=== PATIENT | female | born 1945 | race Two or more races ===

== ENCOUNTER 2022-07-18 03:50 | Inpatient (IN) | payer OTHER ==
[2022-07-18] VITALS (28 sets, daily range): BP systolic 86–185; BP diastolic 46–155
[~2022-07-18] VITALS: Ht 162.6 cm; Wt 62.7 kg
[2022-07-18 04:19] LABS: Basophils # (auto) 0 10 ^3/uL (0-0.2); Mean Corpuscular Volume 85.3 fL (80.0-100.0); Monocytes # (auto) 0.2 10 ^3/uL (0-1.3); Neutrophils # (auto) 9.6 10 ^3/uL (1.6-8.6); White Blood Cell 10.8 10^3/uL (4.4-10.8)
[2022-07-18 04:21] LABS: Basophils % (auto) 0.1 % (0.0-2.0); Eosinophils # (auto) 0.1 10 ^3/uL (0-0.8); Eosinophils % (auto) 0.5 % (0.0-7.0); Hematocrit 17.9 % (36.0-46.0); Lymphocytes % (auto) 9.1 % (10.0-50.0); Mean Corpuscular Hemoglobin 25.7 pg (28.0-32.0); Mean Corpuscular Hgb Conc. 30.1 g/dL (32.0-36.0); Monocytes % (auto) 1.8 % (0.0-12.0); Neutrophils % (auto) 88.5 % (37.0-80.0); Nucleated Red Blood Cells % 2.2 %; Red Cell Distribution Width 14.7 % (11.8-14.3)
[2022-07-18 04:24] LABS: Hemoglobin 5.4 g/dL (12.2-16.2)
[2022-07-18 04:38] LABS: Albumin 1.1 g/dL (3.4-5.0); BUN/Creatinine Ratio 10.2; Calcium 7.4 mg/dL (8.5-10.1); Potassium 5.2 mmol/L (3.5-5.1)
[2022-07-18 04:40] LABS: Bilirubin, Total 0.7 mg/dL (0.2-1.0); Lactic Acid w/Reflex 12.6 mmol/L (0.4-2.0); Total Protein 4.3 g/dL (6.4-8.2)
[2022-07-18] MEDS ORDERED: AZITHROMYCIN 500MG/ 250ML 250 ML IV ONE (04:45)
[2022-07-18] MEDS ORDERED: cefTRIAXone 1GM/50ML D5W 50 ML IV ONE (04:45)
[2022-07-18] MEDS ORDERED: LORazepam 0.5 MG TAB PO PRN (06:00)
[2022-07-18] MEDS ORDERED: HYDROmorphone HCL 2 MG/ML VL/or syr IV PRN (06:00)
[2022-07-18] MEDS ORDERED: DOCUSATE SOD 100 MG CAP PO PRN (06:00)
[2022-07-18] MEDS ORDERED: TEMAZEPAM 15 MG CAP PO PRN (06:00)
[2022-07-18] MEDS ORDERED: DEXTROSE (50%) 50ML SYRG IV PRN (06:00)
[2022-07-18] MEDS ORDERED: MAALOX PLUS or MAALOX 30 ML PO PRN (06:00)
[2022-07-18] MEDS ORDERED: ONDANSETRON HCL 4 MG/2 ML VIAL IV PRN (06:00)
[2022-07-18] MEDS ORDERED: SODIUM CHLORIDE 0.9% 1,000 ML IV SCH (06:00)
[2022-07-18] MEDS ORDERED: ACETAMINOPHEN 325 MG TAB PO PRN (06:00)
[2022-07-18] MEDS ORDERED: HYDROcodone-ACET 5/325MG TAB PO PRN (06:00)
[2022-07-18] MEDS ORDERED: MORPHINE SULFATE INJ 2 MG/ml SYRG IV PRN (06:00)
[2022-07-18] MEDS ORDERED: SODIUM BICARBONATE 50ML VIAL 75 ML in D5W 5% 1,000 ML IV ONE (06:15)
[2022-07-18] MEDS ORDERED: NOREPINEPHRINE 8 MG/250ML KIT 250 ML IV ONE (07:13)
[2022-07-18] MEDS ORDERED: SODIUM CHLORIDE 0.9% 1,000 ML IV ONE (07:15)
[2022-07-18] MEDS ORDERED: ALBUMIN 25% 100 ML IV ONE (07:15)
[2022-07-18] MEDS: NOREPINEPHRINE 8 MG/250ML KIT 250 ML IV SCH ×2 (07:44→23:30)
[2022-07-18] MEDS: InsuLIN REG 1unit/0.01ml Soln (100units/ml) SC SCH ×4 (08:00→20:00)
[2022-07-18] MEDS: ACCU-CHEK COMFORT CURVE STRIP VI SCH ×4 (08:00→20:00)
[2022-07-18 09:04] LABS: Hematocrit 24.2 % (36.0-46.0)
[2022-07-18] MEDS ORDERED: AZITHROMYCIN 500MG/ 250ML 250 ML IV SCH (10:00)
[2022-07-18 12:18] LABS: BUN/Creatinine Ratio 11.2; Calcium 6.9 mg/dL (8.5-10.1); Potassium 4.1 mmol/L (3.5-5.1)
[2022-07-18 19:07] LABS: Hematocrit 26.5 % (36.0-46.0); Hemoglobin 8.6 g/dL (12.2-16.2); Mean Corpuscular Hemoglobin 26.7 pg (28.0-32.0); Mean Corpuscular Hgb Conc. 32.7 g/dL (32.0-36.0); Mean Corpuscular Volume 81.8 fL (80.0-100.0); Red Blood Cells 3.23 10^6/uL (4.0-5.20); White Blood Cell 11.7 10^3/uL (4.4-10.8)
[2022-07-18 19:09] LABS: Basophils % (manual) 0 (0.0-2.0); Blast Cells 0; Eosinophils % (manual) 0 (0-7); Metamyelocytes % 0; Myelocytes % 0; Promyelocytes % 0; Reactive Lymphocytes 0
[2022-07-18 19:23] LABS: Potassium 4.1 mmol/L (3.5-5.1)
[2022-07-18 19:33] LABS: INR 1.46 (0.9-1.15); Partial Thromboplastin Time 54.1 sec (24.6-33.4)
[2022-07-18 19:35] LABS: BUN/Creatinine Ratio 12.2; Calcium 7.7 mg/dL (8.5-10.1)
[2022-07-18 19:37] LABS: Band Neutrophils % (manual) 25; Lymphocytes % (manual) 8 (10.0-50.0); Monocytes % (manual) 3 (0-12)
[2022-07-18] MEDS ORDERED: HEPARIN SODIUM (PORCINE) 5000 UNITS/ML 1ML VIAL ONE (20:21)
[2022-07-18] MEDS ORDERED: HEPARIN SODIUM (PORCINE) 5000 UNITS/ML 1ML VIAL IV ONE (20:30)
[2022-07-18] MEDS ORDERED: SODIUM CHL 0.9% 1000 ML BAG XX ONE (20:45)
[2022-07-19] VITALS (101 sets, daily range): BP systolic 67–121; BP diastolic 13–75
[2022-07-19] MEDS: ACCU-CHEK COMFORT CURVE STRIP VI SCH ×7 (00:03→23:59)
[2022-07-19 03:53] LABS: Basophils # (auto) 0 10 ^3/uL (0-0.2); Basophils % (auto) 0.1 % (0.0-2.0); Eosinophils # (auto) 0 10 ^3/uL (0-0.8); Hemoglobin 7.4 g/dL (12.2-16.2); Lymphocytes # (auto) 0.5 10 ^3/uL (0.4-5.4); Red Blood Cells 2.69 10^6/uL (4.0-5.20)
[2022-07-19 03:55] LABS: Eosinophils % (auto) 0.1 % (0.0-7.0); Hematocrit 21.5 % (36.0-46.0); Lymphocytes % (auto) 4.2 % (10.0-50.0); Mean Corpuscular Hemoglobin 27.6 pg (28.0-32.0); Mean Corpuscular Hgb Conc. 34.4 g/dL (32.0-36.0); Mean Corpuscular Volume 80.1 fL (80.0-100.0); Monocytes # (auto) 0.4 10 ^3/uL (0-1.3); Monocytes % (auto) 3.3 % (0.0-12.0); Neutrophils # (auto) 10.5 10 ^3/uL (1.6-8.6); Neutrophils % (auto) 92.3 % (37.0-80.0); Nucleated Red Blood Cells % 0.9 %; White Blood Cell 11.4 10^3/uL (4.4-10.8)
[2022-07-19] MEDS: InsuLIN REG 1unit/0.01ml Soln (100units/ml) SC SCH ×6 (04:00→20:00)
[2022-07-19 04:02] LABS: Albumin 1.3 g/dL (3.4-5.0); BUN/Creatinine Ratio 13.4; Calcium 7.5 mg/dL (8.5-10.1); Potassium 4.3 mmol/L (3.5-5.1)
[2022-07-19] MEDS: cefTRIAXone 1GM/50ML D5W 50 ML IV SCH (10:44)
[2022-07-19] MEDS: AZITHROMYCIN 500MG/ 250ML 250 ML IV SCH (10:45)
[2022-07-19] MEDS: NOREPINEPHRINE 8 MG/250ML KIT 250 ML IV SCH ×2 (12:14→20:00)
[2022-07-20] VITALS (98 sets, daily range): BP systolic 80–119; BP diastolic 49–73
[2022-07-20 01:56] LABS: Hepatitis A Ab IgM Negative
[2022-07-20 01:57] LABS: Hepatitis C Antibody Negative (Negative)
[2022-07-20 01:58] LABS: Hepatitis B Core IgM Negative
[2022-07-20] MEDS: ACCU-CHEK COMFORT CURVE STRIP VI SCH ×5 (04:00→19:57)
[2022-07-20] MEDS: InsuLIN REG 1unit/0.01ml Soln (100units/ml) SC SCH ×6 (04:00→19:58)
[2022-07-20 04:03] LABS: Basophils # (auto) 0 10 ^3/uL (0-0.2); Eosinophils # (auto) 0 10 ^3/uL (0-0.8); Lymphocytes % (auto) 6.2 % (10.0-50.0); Monocytes # (auto) 0.5 10 ^3/uL (0-1.3); Neutrophils # (auto) 14.7 10 ^3/uL (1.6-8.6); Neutrophils % (auto) 90.7 % (37.0-80.0); Nucleated Red Blood Cells % 0.3 %; Red Cell Distribution Width 15.6 % (11.8-14.3); White Blood Cell 16.2 10^3/uL (4.4-10.8)
[2022-07-20 04:08] LABS: Basophils % (auto) 0.1 % (0.0-2.0); Hematocrit 20.7 % (36.0-46.0); Mean Corpuscular Hemoglobin 28.1 pg (28.0-32.0); Mean Corpuscular Hgb Conc. 33.5 g/dL (32.0-36.0); Mean Corpuscular Volume 83.9 fL (80.0-100.0); Red Blood Cells 2.47 10^6/uL (4.0-5.20)
[2022-07-20 04:21] LABS: Albumin 1.2 g/dL (3.4-5.0); BUN/Creatinine Ratio 13.4; Potassium 4.2 mmol/L (3.5-5.1)
[2022-07-20 04:24] LABS: Total Protein 3.9 g/dL (6.4-8.2)
[2022-07-20 04:36] LABS: Hemoglobin 6.9 g/dL (12.2-16.2)
[2022-07-20] MEDS: cefTRIAXone 1GM/50ML D5W 50 ML IV SCH (08:05)
[2022-07-20] MEDS: AZITHROMYCIN 500MG/ 250ML 250 ML IV SCH (08:37)
[2022-07-20 09:22] LABS: Basophils # (auto) 0 10 ^3/uL (0-0.2); Eosinophils # (auto) 0 10 ^3/uL (0-0.8); Hemoglobin 8.1 g/dL (12.2-16.2); Red Cell Distribution Width 15.7 % (11.8-14.3)
[2022-07-20 09:23] LABS: Lymphocytes # (auto) 1.1 10 ^3/uL (0.4-5.4); Lymphocytes % (auto) 6.6 % (10.0-50.0); Mean Corpuscular Hgb Conc. 33.6 g/dL (32.0-36.0); Mean Corpuscular Volume 83.1 fL (80.0-100.0); Monocytes # (auto) 0.5 10 ^3/uL (0-1.3); Monocytes % (auto) 2.6 % (0.0-12.0); Neutrophils # (auto) 15.6 10 ^3/uL (1.6-8.6); Neutrophils % (auto) 90.8 % (37.0-80.0); Nucleated Red Blood Cells % 0.4 %; Red Blood Cells 2.89 10^6/uL (4.0-5.20); White Blood Cell 17.2 10^3/uL (4.4-10.8)
[2022-07-20] MEDS ORDERED: HEPARIN SODIUM (PORCINE) 5000 UNITS/ML 1ML VIAL ONE (09:36)
[2022-07-20] MEDS ORDERED: fentaNYL CITRATE 100 MCG/2 ML VL ONE (09:37)
[2022-07-20] MEDS ORDERED: MIDAZOLAM HCL 2MG/2ML 2ml VIAL (1mg/ml) ONE (09:37)
[2022-07-20] MEDS ORDERED: LIDOCAINE 2%HCL (LOCAL ANESTH.) INJ 10ml MDV ONE (09:38)
[2022-07-20 10:58] LABS: INR 1.13 (0.9-1.15); Partial Thromboplastin Time 52.3 sec (24.6-33.4)
[2022-07-20] MEDS ORDERED: VANCOMYCIN PER PHARMACY 0 MG IV SCH (11:45)
[2022-07-20] MEDS ORDERED: VANCOMYCIN 1GM/250ML 250 ML IV ONE (12:00)
[2022-07-20] MEDS ORDERED: FUROSEMIDE 20 MG/2 ML VIAL IV ONE (19:30)
[2022-07-20] MEDS: NOREPINEPHRINE 8 MG/250ML KIT 250 ML IV SCH (20:45)
[2022-07-21] VITALS (96 sets, daily range): BP systolic 82–109; BP diastolic 49–70
[2022-07-21] MEDS: ACCU-CHEK COMFORT CURVE STRIP VI SCH ×7 (00:02→23:35)
[2022-07-21] MEDS: InsuLIN REG 1unit/0.01ml Soln (100units/ml) SC SCH ×7 (03:40→23:35)
[2022-07-21 04:30] LABS: Albumin 1.1 g/dL (3.4-5.0); Calcium 8.2 mg/dL (8.5-10.1); Potassium 4.2 mmol/L (3.5-5.1)
[2022-07-21 04:35] LABS: BUN/Creatinine Ratio 14.8; Total Protein 4.3 g/dL (6.4-8.2)
[2022-07-21 04:42] LABS: Hematocrit 32.4 % (36.0-46.0); Hemoglobin 10.5 g/dL (12.2-16.2); Mean Corpuscular Hemoglobin 28.6 pg (28.0-32.0); Mean Corpuscular Hgb Conc. 32.5 g/dL (32.0-36.0); Red Blood Cells 3.68 10^6/uL (4.0-5.20); Red Cell Distribution Width 16.9 % (11.8-14.3)
[2022-07-21 04:44] LABS: Basophils % (manual) 0 (0.0-2.0); Blast Cells 0; Eosinophils % (manual) 0 (0-7); Metamyelocytes % 0; Myelocytes % 0; Promyelocytes % 0; Reactive Lymphocytes 0
[2022-07-21 06:47] LABS: Band Neutrophils % (manual) 6; Lymphocytes % (manual) 5 (10.0-50.0); Monocytes % (manual) 4 (0-12)
[2022-07-21] MEDS ORDERED: VANCOMYCIN 1GM/250ML 250 ML IV ONE (08:30)
[2022-07-21] MEDS: cefTRIAXone 1GM/50ML D5W 50 ML IV SCH (09:58)
[2022-07-21] MEDS ORDERED: CATHFLO ACTIVASE (ALTEPLASE) 2 MG VIAL IV ONE ×2 (10:00)
[2022-07-21] MEDS: AZITHROMYCIN 500MG/ 250ML 250 ML IV SCH (10:00)
[2022-07-21] MEDS ORDERED: CEFEPIME 1GM/ 50ML 50 ML IV SCH ×2 (10:45→11:15)
[2022-07-21] MEDS ORDERED: VANCOMYCIN PER PHARMACY 0 MG IV SCH (10:45)
[2022-07-21] MEDS: CEFEPIME 0.5 GM in SODIUM CHL 0.9% 50 ML IV SCH (16:08)
[2022-07-21] MEDS ORDERED: HEPARIN SODIUM (PORCINE) 5000 UNITS/ML 1ML VIAL ONE (22:37)
[2022-07-22] VITALS (94 sets, daily range): BP systolic 83–118; BP diastolic 48–70
[2022-07-22] MEDS ORDERED: HEPARIN 1,000 UNITS/ml 1ML VIAL IV ONE (01:00)
[2022-07-22] MEDS: InsuLIN REG 1unit/0.01ml Soln (100units/ml) SC SCH ×5 (03:40→20:00)
[2022-07-22] MEDS: ACCU-CHEK COMFORT CURVE STRIP VI SCH ×5 (03:41→20:00)
[2022-07-22 04:06] LABS: Basophils # (auto) 0 10 ^3/uL (0-0.2); Eosinophils # (auto) 0 10 ^3/uL (0-0.8); Eosinophils % (auto) 0.1 % (0.0-7.0); Hemoglobin 8.7 g/dL (12.2-16.2); Red Blood Cells 3.09 10^6/uL (4.0-5.20)
[2022-07-22 04:22] LABS: Albumin 1.2 g/dL (3.4-5.0); Basophils % (auto) 0.1 % (0.0-2.0); Calcium 7.9 mg/dL (8.5-10.1); Hematocrit 26.9 % (36.0-46.0); Lymphocytes # (auto) 1.2 10 ^3/uL (0.4-5.4); Lymphocytes % (auto) 5.6 % (10.0-50.0); Magnesium 1.6 mg/dL (1.6-2.6); Mean Corpuscular Hemoglobin 28.1 pg (28.0-32.0); Mean Corpuscular Hgb Conc. 32.4 g/dL (32.0-36.0); Mean Corpuscular Volume 86.8 fL (80.0-100.0); Monocytes # (auto) 0.4 10 ^3/uL (0-1.3); Monocytes % (auto) 2.1 % (0.0-12.0); Neutrophils # (auto) 19.1 10 ^3/uL (1.6-8.6); Neutrophils % (auto) 92.1 % (37.0-80.0); Nucleated Red Blood Cells % 0.9 %; Potassium 3.9 mmol/L (3.5-5.1); Red Cell Distribution Width 17.1 % (11.8-14.3); White Blood Cell 20.8 10^3/uL (4.4-10.8)
[2022-07-22 04:27] LABS: BUN/Creatinine Ratio 17.1; Bilirubin, Total 0.8 mg/dL (0.2-1.0); Total Protein 4.3 g/dL (6.4-8.2)
[2022-07-22] MEDS: NOREPINEPHRINE 8 MG/250ML KIT 250 ML IV SCH ×2 (07:39→15:18)
[2022-07-22] MEDS ORDERED: CEFEPIME 1 GM/50 ML IV SCH (10:00)
[2022-07-22] MEDS ORDERED: PANTOPRAZOLE 40 MG/10 ML VIAL INJ IV ONE (12:00)
[2022-07-22] MEDS ORDERED: FUROSEMIDE 40 MG/4 ML VIAL IV ONE (12:00)
[2022-07-22] MEDS: CEFEPIME 0.5 GM in SODIUM CHL 0.9% 50 ML IV SCH (16:36)
[2022-07-23] VITALS (95 sets, daily range): BP systolic 80–119; BP diastolic 48–72
[2022-07-23] MEDS: ACCU-CHEK COMFORT CURVE STRIP VI SCH ×6 (00:07→21:32)
[2022-07-23] MEDS: ceFAZolin 2 GM in D5W 5% 100 ML IV SCH ×4 (00:08→21:21)
[2022-07-23] MEDS: InsuLIN REG 1unit/0.01ml Soln (100units/ml) SC SCH ×6 (04:00→21:32)
[2022-07-23 05:06] LABS: Hematocrit 23.5 % (36.0-46.0); Hemoglobin 7.4 g/dL (12.2-16.2); Mean Corpuscular Hemoglobin 27.5 pg (28.0-32.0); Mean Corpuscular Hgb Conc. 31.6 g/dL (32.0-36.0); Mean Corpuscular Volume 86.9 fL (80.0-100.0); Red Blood Cells 2.71 10^6/uL (4.0-5.20); Red Cell Distribution Width 16.7 % (11.8-14.3); White Blood Cell 19.3 10^3/uL (4.4-10.8)
[2022-07-23 05:28] LABS: BUN/Creatinine Ratio 20.4; Calcium 8.1 mg/dL (8.5-10.1)
[2022-07-23 05:44] LABS: Basophils % (manual) 0 (0.0-2.0); Blast Cells 0; Eosinophils % (manual) 0 (0-7); Promyelocytes % 0; Reactive Lymphocytes 0
[2022-07-23 06:58] LABS: Band Neutrophils % (manual) 8; Metamyelocytes % 1; Monocytes % (manual) 3 (0-12); Myelocytes % 1
[2022-07-23 06:59] LABS: Lymphocytes % (manual) 7 (10.0-50.0)
[2022-07-23] MEDS: PANTOPRAZOLE 40 MG/10 ML VIAL INJ IV SCH (09:48)
[2022-07-23] MEDS ORDERED: FUROSEMIDE 20 MG/2 ML VIAL IV ONE (21:00)
[2022-07-23] MEDS ORDERED: CEFEPIME 1GM/ 50ML 50 ML IV SCH (22:00)
[2022-07-24] VITALS (93 sets, daily range): BP systolic 79–113; BP diastolic 45–69
[2022-07-24] MEDS: PIPERACILLIN-TAZOB 2.25GM 50 ML IV SCH ×4 (00:17→15:50)
[2022-07-24] MEDS: NOREPINEPHRINE 8 MG/250ML KIT 250 ML IV SCH ×2 (01:02→21:05)
[2022-07-24 05:09] LABS: Hematocrit 22.2 % (36.0-46.0); Hemoglobin 7.5 g/dL (12.2-16.2); Mean Corpuscular Hemoglobin 29.1 pg (28.0-32.0); Mean Corpuscular Hgb Conc. 33.6 g/dL (32.0-36.0); Mean Corpuscular Volume 86.8 fL (80.0-100.0); Red Blood Cells 2.56 10^6/uL (4.0-5.20); Red Cell Distribution Width 16.9 % (11.8-14.3); White Blood Cell 18.6 10^3/uL (4.4-10.8)
[2022-07-24 05:11] LABS: Basophils % (manual) 0 (0.0-2.0); Blast Cells 0; Eosinophils % (manual) 0 (0-7); Metamyelocytes % 0; Monocytes % (manual) 0 (0-12); Myelocytes % 0; Promyelocytes % 0; Reactive Lymphocytes 0
[2022-07-24 05:33] LABS: Calcium 7.7 mg/dL (8.5-10.1)
[2022-07-24 05:36] LABS: BUN/Creatinine Ratio 21.4
[2022-07-24 05:37] LABS: Band Neutrophils % (manual) 6; Lymphocytes % (manual) 5 (10.0-50.0)
[2022-07-24] MEDS: ACCU-CHEK COMFORT CURVE STRIP VI SCH ×4 (06:47→22:00)
[2022-07-24] MEDS: InsuLIN REG 1unit/0.01ml Soln (100units/ml) SC SCH ×4 (06:47→22:28)
[2022-07-24] MEDS: PANTOPRAZOLE 40 MG/10 ML VIAL INJ IV SCH (09:30)
[2022-07-25] VITALS (100 sets, daily range): BP systolic 82–124; BP diastolic 44–82
[2022-07-25 05:02] LABS: Hematocrit 19.8 % (36.0-46.0); Mean Corpuscular Hemoglobin 28.3 pg (28.0-32.0); Mean Corpuscular Hgb Conc. 32.1 g/dL (32.0-36.0); Mean Corpuscular Volume 88.1 fL (80.0-100.0); Red Blood Cells 2.25 10^6/uL (4.0-5.20); Red Cell Distribution Width 17.3 % (11.8-14.3); White Blood Cell 17.1 10^3/uL (4.4-10.8)
[2022-07-25 05:13] LABS: Hemoglobin 6.4 g/dL (12.2-16.2)
[2022-07-25 05:14] LABS: Anion Gap 9 (5-15); BUN/Creatinine Ratio 21.1; Blood Urea Nitrogen 63 mg/dL (7-18); Calcium 7.4 mg/dL (8.5-10.1); Carbon Dioxide 24 mmol/L (21-32); Chloride 109 mmol/L (98-107); GFR African American 19 mL/min; GFR Non-African American 16 mL/min; Glucose 88 mg/dL (74-106); Potassium 4.3 mmol/L (3.5-5.1); Sodium 142 mmol/L (136-145)
[2022-07-25 05:15] LABS: Basophils % (manual) 0 (0.0-2.0); Blast Cells 0; Eosinophils % (manual) 0 (0-7); Promyelocytes % 0; Reactive Lymphocytes 0
[2022-07-25] MEDS: PIPERACILLIN-TAZOB 2.25GM 50 ML IV SCH ×3 (06:19→21:48)
[2022-07-25] MEDS: ACCU-CHEK COMFORT CURVE STRIP VI SCH ×4 (06:21→21:49)
[2022-07-25] MEDS: InsuLIN REG 1unit/0.01ml Soln (100units/ml) SC SCH ×4 (06:21→21:52)
[2022-07-25 07:24] LABS: Band Neutrophils % (manual) 3; Lymphocytes % (manual) 7 (10.0-50.0); Metamyelocytes % 1; Monocytes % (manual) 2 (0-12); Myelocytes % 1
[2022-07-25] MEDS: PANTOPRAZOLE 40 MG/10 ML VIAL INJ IV SCH (09:31)
[2022-07-25] MEDS: NOREPINEPHRINE 8 MG/250ML KIT 250 ML IV SCH (11:45)
[2022-07-25 16:04] LABS: Hemoglobin 10.4 g/dL (12.2-16.2)
[2022-07-26] VITALS (92 sets, daily range): BP systolic 87–136; BP diastolic 52–82
[2022-07-26 04:13] LABS: Calcium 7.7 mg/dL (8.5-10.1); Magnesium 1.5 mg/dL (1.6-2.6); Potassium 4.5 mmol/L (3.5-5.1)
[2022-07-26 04:14] LABS: BUN/Creatinine Ratio 22.5
[2022-07-26 04:17] LABS: Hemoglobin 8.2 g/dL (12.2-16.2); Mean Corpuscular Hemoglobin 30.4 pg (28.0-32.0); Mean Corpuscular Hgb Conc. 34.3 g/dL (32.0-36.0); Mean Corpuscular Volume 88.6 fL (80.0-100.0); Red Blood Cells 2.71 10^6/uL (4.0-5.20); Red Cell Distribution Width 16.3 % (11.8-14.3); White Blood Cell 16.3 10^3/uL (4.4-10.8)
[2022-07-26 04:26] LABS: Basophils % (manual) 0 (0.0-2.0); Blast Cells 0; Myelocytes % 0; Promyelocytes % 0; Reactive Lymphocytes 0
[2022-07-26] MEDS: ACCU-CHEK COMFORT CURVE STRIP VI SCH ×4 (06:15→22:16)
[2022-07-26] MEDS: PIPERACILLIN-TAZOB 2.25GM 50 ML IV SCH ×3 (06:15→22:16)
[2022-07-26] MEDS: InsuLIN REG 1unit/0.01ml Soln (100units/ml) SC SCH ×4 (06:15→22:16)
[2022-07-26 07:52] LABS: Band Neutrophils % (manual) 6; Eosinophils % (manual) 1 (0-7); Lymphocytes % (manual) 8 (10.0-50.0); Metamyelocytes % 1; Monocytes % (manual) 2 (0-12)
[2022-07-26] MEDS: PANTOPRAZOLE 40 MG/10 ML VIAL INJ IV SCH (08:42)
[2022-07-26] MEDS ORDERED: FUROSEMIDE 40 MG/4 ML VIAL IV ONE (10:15)
[2022-07-26] MEDS: MAGNESIUM SULFATE 1GM/100ML 100 ML IV SCH ×2 (11:17→12:26)
[2022-07-26 11:55] LABS: INR 1.14 (0.9-1.15); Partial Thromboplastin Time 33.7 sec (24.6-33.4)
[2022-07-26] MEDS: NOREPINEPHRINE 8 MG/250ML KIT 250 ML IV SCH (12:33)
[2022-07-27] VITALS (96 sets, daily range): BP systolic 83–122; BP diastolic 48–79
[2022-07-27 04:59] LABS: Eosinophils # (auto) 0 10 ^3/uL (0-0.8); Hemoglobin 8.1 g/dL (12.2-16.2); Mean Corpuscular Volume 88.2 fL (80.0-100.0); Monocytes # (auto) 0.4 10 ^3/uL (0-1.3); Monocytes % (auto) 2.7 % (0.0-12.0); Nucleated Red Blood Cells % 0.1 %; Red Blood Cells 2.82 10^6/uL (4.0-5.20)
[2022-07-27 05:10] LABS: Basophils # (auto) 0 10 ^3/uL (0-0.2); Basophils % (auto) 0.2 % (0.0-2.0); Eosinophils % (auto) 0.2 % (0.0-7.0); Hematocrit 24.8 % (36.0-46.0); Lymphocytes % (auto) 6.3 % (10.0-50.0); Mean Corpuscular Hemoglobin 28.9 pg (28.0-32.0); Mean Corpuscular Hgb Conc. 32.8 g/dL (32.0-36.0); Neutrophils # (auto) 14.2 10 ^3/uL (1.6-8.6); Neutrophils % (auto) 90.6 % (37.0-80.0); White Blood Cell 15.6 10^3/uL (4.4-10.8)
[2022-07-27 05:16] LABS: BUN/Creatinine Ratio 21.8; Calcium 7.4 mg/dL (8.5-10.1); Magnesium 2.1 mg/dL (1.6-2.6); Potassium 4.4 mmol/L (3.5-5.1)
[2022-07-27] MEDS: InsuLIN REG 1unit/0.01ml Soln (100units/ml) SC SCH ×4 (07:00→21:47)
[2022-07-27] MEDS: ACCU-CHEK COMFORT CURVE STRIP VI SCH ×4 (07:00→21:44)
[2022-07-27] MEDS: PIPERACILLIN-TAZOB 2.25GM 50 ML IV SCH ×3 (07:50→21:44)
[2022-07-27] MEDS ORDERED: FUROSEMIDE 40 MG/4 ML VIAL IV ONE (10:45)
[2022-07-27] MEDS: PANTOPRAZOLE 40 MG/10 ML VIAL INJ IV SCH (12:11)
[2022-07-27] MEDS: NOREPINEPHRINE 8 MG/250ML KIT 250 ML IV SCH (12:12)
[2022-07-27] MEDS: ALBUMIN 25% 50 ML IV SCH ×2 (12:13→19:18)
[2022-07-27] MEDS: MIDODRINE HCL 10 MG TAB PO SCH ×2 (12:26→19:17)
[2022-07-28] VITALS (73 sets, daily range): BP systolic 83–130; BP diastolic 51–80
[2022-07-28] MEDS: ALBUMIN 25% 50 ML IV SCH (02:59)
[2022-07-28 04:36] LABS: Basophils # (auto) 0.1 10 ^3/uL (0-0.2); Eosinophils # (auto) 0 10 ^3/uL (0-0.8); Eosinophils % (auto) 0.3 % (0.0-7.0); Lymphocytes # (auto) 0.8 10 ^3/uL (0.4-5.4); Neutrophils # (auto) 10.9 10 ^3/uL (1.6-8.6); White Blood Cell 12.2 10^3/uL (4.4-10.8)
[2022-07-28 04:46] LABS: Basophils % (auto) 0.5 % (0.0-2.0); Hematocrit 19.9 % (36.0-46.0); Lymphocytes % (auto) 6.8 % (10.0-50.0); Mean Corpuscular Hemoglobin 30.1 pg (28.0-32.0); Mean Corpuscular Volume 88.6 fL (80.0-100.0); Monocytes # (auto) 0.4 10 ^3/uL (0-1.3); Neutrophils % (auto) 89.4 % (37.0-80.0); Red Blood Cells 2.25 10^6/uL (4.0-5.20); Red Cell Distribution Width 17.1 % (11.8-14.3)
[2022-07-28 04:49] LABS: Calcium 7.9 mg/dL (8.5-10.1); Potassium 3.9 mmol/L (3.5-5.1)
[2022-07-28 05:04] LABS: Hemoglobin 6.8 g/dL (12.2-16.2)
[2022-07-28] MEDS: MIDODRINE HCL 10 MG TAB PO SCH ×2 (06:30→11:58)
[2022-07-28] MEDS: ACCU-CHEK COMFORT CURVE STRIP VI SCH ×2 (06:30→11:30)
[2022-07-28] MEDS: PIPERACILLIN-TAZOB 2.25GM 50 ML IV SCH ×2 (06:30→13:31)
[2022-07-28] MEDS: InsuLIN REG 1unit/0.01ml Soln (100units/ml) SC SCH ×2 (07:00→11:30)
[2022-07-28] MEDS ORDERED: FUROSEMIDE 40 MG/4 ML VIAL IV ONE (10:30)
[2022-07-28] MEDS: PANTOPRAZOLE 40 MG/10 ML VIAL INJ IV SCH (13:32)
== END 2022-07-28 18:15 | disposition hospice, home (50) | DRG 871 ==
LOC: ER 03:50 → EDBD 03:50 → TELE 06:08 → ICU WEST 16:02
PROVIDERS: ADMIT Hospitalist; ATTEND Internal Medicine Geriatric Medicine
PROC: 06HM33Z Insertion of Infusion Device into Right Femoral Vein, Percutaneous Approach (ICD-10-PCS; 2022-07-18)
PROC: B54BZZA Ultrasonography of Right Lower Extremity Veins, Guidance (ICD-10-PCS; 2022-07-18)
PROC: 30233N1 Transfusion of Nonautologous Red Blood Cells into Peripheral Vein, Percutaneous Approach (ICD-10-PCS; 2022-07-18)
PROC: 5A1D70Z Performance of Urinary Filtration, Intermittent, Less than 6 Hours Per Day (ICD-10-PCS; 2022-07-19)
PROC: 0T9430Z Drainage of Left Kidney Pelvis with Drainage Device, Percutaneous Approach (ICD-10-PCS; principal; 2022-07-20)
PROC: BT12YZZ Fluoroscopy of Left Kidney using Other Contrast (ICD-10-PCS; 2022-07-20)
PROC: BT42ZZZ Ultrasonography of Left Kidney (ICD-10-PCS; 2022-07-20)
PROC: 5A1D70Z Performance of Urinary Filtration, Intermittent, Less than 6 Hours Per Day (ICD-10-PCS; 2022-07-21)
DX: A41.9 Sepsis, unspecified organism (principal); E43 Unspecified severe protein-calorie malnutrition; R65.21 Severe sepsis with septic shock; J18.9 Pneumonia, unspecified organism; J96.01 Acute respiratory failure with hypoxia; R57.1 Hypovolemic shock; J90 Pleural effusion, not elsewhere classified; R18.8 Other ascites; J81.1 Chronic pulmonary edema; N13.6 Pyonephrosis; N17.9 Acute kidney failure, unspecified; D50.0 Iron deficiency anemia secondary to blood loss (chronic); Z20.822 Contact with and (suspected) exposure to COVID-19; D63.8 Anemia in other chronic diseases classified elsewhere; E11.649 Type 2 diabetes mellitus with hypoglycemia without coma; D69.6 Thrombocytopenia, unspecified; E11.22 Type 2 diabetes mellitus with diabetic chronic kidney disease; E87.5 Hyperkalemia; I12.9 Hypertensive chronic kidney disease with stage 1 through stage 4 chronic kidney disease, or unspecified chronic kidney disease; N18.9 Chronic kidney disease, unspecified; R31.0 Gross hematuria; Z85.51 Personal history of malignant neoplasm of bladder; Z51.5 Encounter for palliative care
CPT/HCPCS: 36415; 36600; 71045; 74176; 74425; 76705; 76942; 80048; 80053; 80074; 80202; 82805; 82962; 83605; 83735; 83880; 84484; 85007; 85014; 85018; 85025; 85027; 85610; 85730; 86850; 86900; 86901; 86920; 87040; 87077; 87081; 87086; 87186; 87426; 87804; 90935; 93005; 93306; 96365; 96367; 96368; 99152; 99153; 99291; C1729; C9113; G0378; J0690; J0696; J2001; J2250; J2543; J7060; P9047

== ENCOUNTER 2022-09-17 11:46 | Inpatient (IN) | payer OTHER ==
[~2022-09-17] VITALS: Ht 167.6 cm; Wt 72.6 kg
[2022-09-17] MEDS ORDERED: ETOMIDATE (2MG/ML) 20ML VIAL IV ONE (12:00)
[2022-09-17] MEDS ORDERED: SUCCINYLCHOLINE CHLORIDE 20 MG/ML 10ML VIAL IV ONE (12:00)
[2022-09-17] MEDS ORDERED: SODIUM CHLORIDE 0.9% 500 ML IVB ONE (12:00)
[2022-09-17] MEDS ORDERED: levoFLOXacin 500MG 100 ML IV ONE (12:00)
[2022-09-17] MEDS ORDERED: PIPERACILLIN-TAZOB 3.375GM 100 ML IV ONE (12:00)
[2022-09-17] MEDS ORDERED: MIDAZOLAM DRIP 50 mg/50mL 50 ML IV ONE (12:03)
[2022-09-17] MEDS: MIDAZOLAM DRIP 50 mg/50mL 50 ML IV SCH ×3 (12:05→21:42)
[2022-09-17] MEDS ORDERED: NOREPINEPHRINE 8 MG/250ML KIT 250 ML IV ONE (12:12)
[2022-09-17] MEDS: NOREPINEPHRINE 8 MG/250ML KIT 250 ML IV SCH ×3 (12:16→21:44)
[2022-09-17 12:20] LABS: Basophils # (auto) 0 10 ^3/uL (0-0.2); Basophils % (auto) 0.2 % (0.0-2.0); Eosinophils # (auto) 0 10 ^3/uL (0-0.8); Lymphocytes # (auto) 1.8 10 ^3/uL (0.4-5.4); Mean Corpuscular Hgb Conc. 30.6 g/dL (32.0-36.0); Monocytes # (auto) 0.3 10 ^3/uL (0-1.3)
[2022-09-17 12:22] LABS: Eosinophils % (auto) 0.2 % (0.0-7.0); Hematocrit 17.7 % (36.0-46.0); Lymphocytes % (auto) 14.1 % (10.0-50.0); Mean Corpuscular Hemoglobin 26.8 pg (28.0-32.0); Mean Corpuscular Volume 87.6 fL (80.0-100.0); Neutrophils # (auto) 10.9 10 ^3/uL (1.6-8.6); Neutrophils % (auto) 83.5 % (37.0-80.0); Nucleated Red Blood Cells % 0.1 %; Red Blood Cells 2.02 10^6/uL (4.0-5.20)
[2022-09-17] MEDS ORDERED: EPINEPHrine HCL 1 MG/10 ML SYRG ONE (12:22)
[2022-09-17 12:30] LABS: Hemoglobin 5.4 g/dL (12.2-16.2); Red Cell Distribution Width 20.9 % (11.8-14.3)
[2022-09-17 12:47] LABS: INR 1.34 (0.9-1.15); Partial Thromboplastin Time 38.4 sec (24.6-33.4)
[2022-09-17 12:56] LABS: Lactic Acid w/Reflex 4.7 mmol/L (0.4-2.0)
[2022-09-17] MEDS ORDERED: EPINEPHrine HCL 1 MG/10 ML SYRG IV ONE (13:00)
[2022-09-17] MEDS ORDERED: ONDANSETRON HCL 4 MG/2 ML VIAL IV PRN (14:30)
[2022-09-17] MEDS ORDERED: MORPHINE SULFATE INJ 2 MG/ml SYRG IV PRN (14:30)
[2022-09-17] MEDS ORDERED: NITROGLYCERIN 0.4 MG SL TAB SL PRN (14:30)
[2022-09-17] MEDS ORDERED: PHENYLEPHRINE IV 250 ML IV ONE (15:00)
[2022-09-17] MEDS: PHENYLEPHRINE IV 250 ML IV SCH ×3 (15:12→21:43)
[2022-09-17 15:15] VITALS: BP 65/27
[2022-09-17] MEDS ORDERED: SODIUM BICARBONATE 8.4 % INJ 50ML VIAL IV ONE (15:15)
[2022-09-17 15:26] LABS: Albumin 1.2 g/dL (3.4-5.0); BUN/Creatinine Ratio 16.3; Calcium 7.6 mg/dL (8.5-10.1); Potassium 3.5 mmol/L (3.5-5.1)
[2022-09-17 15:28] LABS: Bilirubin, Total 0.3 mg/dL (0.2-1.0); Total Protein 5.9 g/dL (6.4-8.2)
[2022-09-17 15:29] VITALS: BP 65/27
[2022-09-17] MEDS ORDERED: ALBUMIN 25% 50 ML IV ONE (17:00)
[2022-09-17 18:22] LABS: Hematocrit 28.8 % (36.0-46.0); Hemoglobin 9.4 g/dL (12.2-16.2); Mean Corpuscular Hemoglobin 29.2 pg (28.0-32.0); Mean Corpuscular Hgb Conc. 32.5 g/dL (32.0-36.0); Mean Corpuscular Volume 89.7 fL (80.0-100.0); Red Blood Cells 3.21 10^6/uL (4.0-5.20); Red Cell Distribution Width 17.8 % (11.8-14.3); White Blood Cell 28.4 10^3/uL (4.4-10.8)
[2022-09-17 18:25] VITALS: BP 82/50
[2022-09-17 18:43] LABS: Basophils % (manual) 0 (0.0-2.0); Blast Cells 0; Eosinophils % (manual) 0 (0-7); Metamyelocytes % 0; Myelocytes % 0; Promyelocytes % 0; Reactive Lymphocytes 0
[2022-09-17 19:14] LABS: Band Neutrophils % (manual) 24; Lymphocytes % (manual) 2 (10.0-50.0); Monocytes % (manual) 2 (0-12)
[2022-09-17 20:02] VITALS: BP 67/40
[2022-09-17] MEDS ORDERED: SODIUM CHLORIDE 0.9% 1,000 ML IV ONE (20:30)
[2022-09-17] MEDS: MAGNESIUM SULFATE 1GM/100ML 100 ML IV SCH ×2 (21:04→22:40)
[2022-09-17] MEDS ORDERED: PIPERACILLIN-TAZOB 3.375GM 100 ML IV SCH (22:00)
[2022-09-17 22:04] VITALS: BP 88/60
[2022-09-17] MEDS: SODIUM CHLOR 0.9% PF (SALINE LOCK) 10ML VIAL/SYR IV SCH (22:40)
[2022-09-18] VITALS (8 sets, daily range): BP systolic 0–109; BP diastolic 0–81
[2022-09-18] MEDS: VASOPRESSIN 20 UNITS in SODIUM CHL 0.9% 99 ML IV SCH ×2 (00:23→09:57)
[2022-09-18] MEDS: PHENYLEPHRINE IV 250 ML IV SCH ×2 (01:53→06:45)
[2022-09-18] MEDS: NOREPINEPHRINE 8 MG/250ML KIT 250 ML IV SCH ×4 (01:54→11:41)
[2022-09-18 03:42] LABS: Hemoglobin 8.8 g/dL (12.2-16.2)
[2022-09-18 03:44] LABS: Hematocrit 27.9 % (36.0-46.0)
[2022-09-18] MEDS: DOBUTamine 1000MCG/ML 250 ML IV SCH ×3 (03:44→08:17)
[2022-09-18] MEDS: MIDAZOLAM DRIP 50 mg/50mL 50 ML IV SCH (03:46)
[2022-09-18] MEDS ORDERED: PIPERACILLIN-TAZOB 3.375GM 100 ML IV SCH (05:00)
[2022-09-18] MEDS ORDERED: HYDROCORTISONE SOD SUCC 100 MG/2ML INJ VIAL IV ONE (05:15)
[2022-09-18] MEDS: SODIUM CHLOR 0.9% PF (SALINE LOCK) 10ML VIAL/SYR IV SCH (05:27)
[2022-09-18 06:23] LABS: Chloride 114 mmol/L (98-107); Potassium 3.4 mmol/L (3.5-5.1); Sodium 147 mmol/L (136-145)
[2022-09-18 06:32] LABS: Albumin 1.1 g/dL (3.4-5.0); Anion Gap 15 (5-15); BUN/Creatinine Ratio 15.7; Blood Urea Nitrogen 39 mg/dL (7-18); Calcium 6.5 mg/dL (8.5-10.1); Carbon Dioxide 18 mmol/L (21-32); GFR African American 24 mL/min; GFR Non-African American 20 mL/min; Glucose 94 mg/dL (74-106); Magnesium 1.7 mg/dL (1.6-2.6)
[2022-09-18 06:35] LABS: Hematocrit 23.3 % (36.0-46.0); Mean Corpuscular Hemoglobin 30.2 pg (28.0-32.0); Mean Corpuscular Hgb Conc. 34.3 g/dL (32.0-36.0); Mean Corpuscular Volume 87.8 fL (80.0-100.0); Red Blood Cells 2.66 10^6/uL (4.0-5.20); Red Cell Distribution Width 17.8 % (11.8-14.3); White Blood Cell 24.7 10^3/uL (4.4-10.8)
[2022-09-18 06:42] LABS: Basophils % (manual) 0 (0.0-2.0); Blast Cells 0; Eosinophils % (manual) 0 (0-7); Metamyelocytes % 0; Myelocytes % 0; Promyelocytes % 0; Reactive Lymphocytes 0
[2022-09-18 06:57] LABS: Alanine Aminotransferase 10 U/L (13-56); Alkaline Phosphatase 64 U/L (45-117); Aspartate Aminotransferase 39 U/L (15-37); Bilirubin, Total 1.2 mg/dL (0.2-1.0); Total Protein 4.8 g/dL (6.4-8.2)
[2022-09-18 07:18] LABS: Band Neutrophils % (manual) 63; Lymphocytes % (manual) 7 (10.0-50.0); Monocytes % (manual) 5 (0-12)
[2022-09-18] MEDS ORDERED: levoFLOXacin 500MG 100 ML IV SCH (10:00)
[2022-09-18] MEDS ORDERED: PANTOPRAZOLE 40 MG/10 ML VIAL INJ IV SCH (10:00)
[2022-09-18] MEDS ORDERED: LORazepam 2MG/ML-1ML VIAL ONE (13:49)
[2022-09-18] MEDS ORDERED: MORPHINE SULFATE INJ 2 MG/ml SYRG ONE (13:50)
[2022-09-18] MEDS ORDERED: MORPHINE SULFATE INJ 2 MG/ml SYRG IV PRN (14:00)
[2022-09-18] MEDS ORDERED: LORazepam 2MG/ML-1ML VIAL IV PRN (14:00)
[2022-09-18] MEDS ORDERED: SODIUM BICARBONATE 8.4 % INJ 50ML VIAL IV ONE (14:21)
[2022-09-18] MEDS ORDERED: ATROPINE SULF 1 MG/10ml SYR IV ONE (14:21)
[2022-09-18] MEDS ORDERED: EPINEPHrine HCL 1 MG/10 ML SYRG IV ONE (14:21)
[2022-09-18] MEDS ORDERED: DEXTROSE (50%) 50ML SYRG IV ONE (14:21)
== END 2022-09-18 14:22 | DRG 871 ==
LOC: ER 11:46 → EDBD 11:46 → TELE 15:08
PROVIDERS: ADMIT Nurse Practitioner Family; ATTEND Nurse Practitioner Family
PROC: 0BH17EZ Insertion of Endotracheal Airway into Trachea, Via Natural or Artificial Opening (ICD-10-PCS; principal; 2022-09-17)
PROC: 5A1935Z Respiratory Ventilation, Less than 24 Consecutive Hours (ICD-10-PCS; 2022-09-17)
PROC: 02H633Z Insertion of Infusion Device into Right Atrium, Percutaneous Approach (ICD-10-PCS; 2022-09-17)
PROC: 30233N1 Transfusion of Nonautologous Red Blood Cells into Peripheral Vein, Percutaneous Approach (ICD-10-PCS; 2022-09-17)
PROC: 5A0935A Assistance with Respiratory Ventilation, Less than 24 Consecutive Hours, High Flow/Velocity Cannula (ICD-10-PCS; 2022-09-17)
PROC: 5A12012 Performance of Cardiac Output, Single, Manual (ICD-10-PCS; 2022-09-17)
DX: A41.9 Sepsis, unspecified organism (principal); E43 Unspecified severe protein-calorie malnutrition; J96.01 Acute respiratory failure with hypoxia; J18.9 Pneumonia, unspecified organism; R65.21 Severe sepsis with septic shock; N17.9 Acute kidney failure, unspecified; E87.1 Hypo-osmolality and hyponatremia; I13.0 Hypertensive heart and chronic kidney disease with heart failure and stage 1 through stage 4 chronic kidney disease, or unspecified chronic kidney disease; C67.9 Malignant neoplasm of bladder, unspecified; Z20.822 Contact with and (suspected) exposure to COVID-19; D64.9 Anemia, unspecified; E87.6 Hypokalemia; H57.04 Mydriasis; N18.9 Chronic kidney disease, unspecified; I50.9 Heart failure, unspecified; Z85.51 Personal history of malignant neoplasm of bladder; Z51.5 Encounter for palliative care; Z68.25 Body mass index [BMI] 25.0-25.9, adult
CPT/HCPCS: 31500; 36415; 36556; 36600; 71045; 80053; 82805; 82962; 83605; 83735; 85007; 85014; 85018; 85025; 85027; 85379; 85610; 85730; 86850; 86900; 86901; 86920; 87070; 87205; 87426; 92950; 93005; 94002; 94003; 96361; 96365; 96366; 96367; 96368; 96375; 99291; G0378; J0330; J1956; J2250; J2543